=== PATIENT | male | born 1980 | race Caucasian/White ===

== ENCOUNTER 2016-12-02 08:51 | Emergency (ER) | payer SELFPAY ==
[2016-12-02 09:20] VITALS: TEMP 97.7; O2SAT 100
--- NOTE | 2016-12-02 09:54 | C.PDOC ---
History Of Present Illness 35 year old male presents to the ED for evaluation of new onset left lower back pain x 3 days. Patient denies trauma and states symptoms are intermittent worsening. Patient reports pain radiates to left hip, thigh and leg. Denies weakness/numbness, prior history of sciatica. Patient has not taken any pain medications. NEW ONSET L LOWER BACK PAIN X 3 DAYS. NO TRAUMA. INTERMIT WORSENING. +RADIATION L HIP/THIGH/LEG .NO WEAKNESS, NUMB. DENIES PRIOR HO SCIATICA. NO PAIN MEDS TRIED. EXAM MILD DIST BACK NONTEND LIMITED FULL ROM DUE TO PAIN. ATRAUM NEURO INTACT GAIT WNL EXT ATRAUM Time Seen by Provider: 12/02/16 09:39 Chief Complaint (Nursing): Back Pain History Per: Patient History/Exam Limitations: no limitations Onset/Duration Of Symptoms: Days (3), Intermittent Episodes Current Symptoms Are (Timing): Worse Quality Of Discomfort: "Pain" Previous Symptoms: Back Pain (left-sided, lower ) Associated Symptoms: denies: New Weakness, New Numbness Additional History Per: Patient Past Medical History Reviewed: Historical Data, Nursing Documentation, Vital Signs Vital Signs: Last Vital Signs Temp 97.7 F 12/02/16 11:07 Pulse 80 12/02/16 11:07 Resp 18 12/02/16 11:07 BP 107/6 L 12/02/16 11:07 Pulse Ox 100 12/02/16 11:07 - Medical History PMH: No Chronic Diseases Surgical History: No Surg Hx Family History: States: Unknown Family Hx - Social History Hx Tobacco Use: Yes Hx Alcohol Use: Yes Hx Substance Use: No - Immunization History Hx Tetanus Toxoid Vaccination: No Hx Influenza Vaccination: No Hx Pneumococcal Vaccination: No Review Of Systems Musculoskeletal: Positive for: Back Pain (left-sided, lower ), Leg Pain (left), Other (left lip and thigh pain ) Neurological: Negative for: Weakness, Numbness Physical Exam - Physical Exam Appears: Non-toxic, Other (mild distress ) Skin: Normal Color, Warm, Dry Head: Atraumatic, Normacephalic Eye(s): bilateral: Normal Inspection Oral Mucosa: Moist Neck: Supple Chest: Symmetrical, No Deformity, No Tenderness Cardiovascular: Rhythm Regular, No Murmur Respiratory: Normal Breath Sounds, No Rales, No Rhonchi, No Wheezing Back: Normal Inspection, No Vertebral Tenderness, Decreased ROM (limited full ROM secondary to pain ), No Paraspinal Tenderness, Other (atraumatic ) Extremity: Normal ROM, Capillary Refill (less than 2 seconds) Extremity: Bilateral: Atraumatic Neurological/Psych: Oriented x3, Normal Speech, Normal Cognition Gait: Steady ED Course And Treatment O2 Sat by Pulse Oximetry: 100 (on RA) Pulse Ox Interpretation: Normal Progress Note: Decadron PO, Flexeril PO, Motrin PO, Percocet PO, Tylenol PO administered. Disposition Counseled Patient/Family Regarding: Diagnosis, Need For Followup, Rx Given - Disposition Referrals: [facility] [Outside] [facility] [Outside] Disposition: HOME/ ROUTINE Disposition Time: 10:46 Condition: IMPROVED Prescriptions: Acetaminophen [Tylenol Extra Strength] 2 tab PO Q6 #30 tablet Cyclobenzaprine [Flexeril] 10 mg PO TID #15 tab Ibuprofen [Motrin] 600 mg PO Q6 #30 tab Instructions: Sciatica (ED) Forms: [employer] (Nepalese), Work Excuse Print Language: ZAMBIAN - Clinical Impression Clinical Impression: Sciatica - Scribe Statement The provider has reviewed the documentation as recorded by the Scribe (Mary Forbes) Provider Attestation: All medical record entries made by the Scribe were at my direction and personally dictated by me. I have reviewed the chart and agree that the record accurately reflects my personal performance of the history, physical exam, medical decision making, and the department course for this patient. I have also personally directed, reviewed, and agree with the discharge instructions and disposition.
[2016-12-02] MEDS ORDERED: Oxycodone/Acetaminophen 5/325 mg Tab PO STA (09:55)
[2016-12-02] MEDS ORDERED: Oxycodone/Acetaminophen 5/325 mg Tab ONE (10:11)
[2016-12-02 11:08] VITALS: BP 107/6; PULSE 80; RESP 18
== END 2016-12-02 11:08 | disposition home or self-care (01) ==
LOC: C.ER 08:51
DX: M54.30 Sciatica, unspecified side (principal)
CPT/HCPCS: 99284; J8540